=== PATIENT | female | born 1950 | race Caucasian/White ===

== ENCOUNTER 2017-02-27 08:51 | Emergency (ER) | payer MEDICAID, MEDICARE ==
[2017-02-27] MEDS ORDERED: DEXAMETHASONE 10 MG/ML VIAL PO STA (10:20)
[2017-02-27] MEDS ORDERED: CHERRY SYRUP 10 ML UDC PO ONE (10:27)
[2017-02-27] MEDS ORDERED: DEXAMETHASONE 10 MG/ML VIAL ONE (10:27)
== END 2017-02-27 12:44 | disposition home or self-care (01) ==
DX: S40.012A Contusion of left shoulder, initial encounter (principal); S20.222A Contusion of left back wall of thorax, initial encounter; W18.2XXA Fall in (into) shower or empty bathtub, initial encounter; Y93.E1 Activity, personal bathing and showering; Y92.002 Bathroom of unspecified non-institutional (private) residence as the place of occurrence of the external cause; I10 Essential (primary) hypertension; E03.9 Hypothyroidism, unspecified
CPT/HCPCS: 72072; 73030; 99283; 99284; A9270

== ENCOUNTER 2017-04-13 10:11 | Emergency (ER) | payer MEDICARE, MEDICAID ==
--- NOTE | 2017-04-13 10:45 | ED Physician Documentation ---
PD HPI NECK PAIN - Stated complaint Stated Complaint: NECK PX - Chief complaint Chief Complaint: General - History obtained from History obtained from: Patient - History of Present Illness Timing - onset: How many days ago (2) Timing - duration: Days (2) Timing - details: Gradual onset, Still present, Waxing and waning Location: Lower, Right Associated symptoms: No: Fever, Weakness, Numbness Improves with: Rest Worsened by: Movement, Twisting, Palpation Contributing factors: Lifting (is moving and has been loading and lifting boxes. ) Similar symptoms before: Has not had sx before Recently seen: Not recently seen Review of Systems Constitutional: denies: Fever, Chills Nose: denies: Rhinorrhea / runny nose, Congestion Throat: denies: Sore throat Cardiac: denies: Chest pain / pressure Respiratory: denies: Dyspnea, Cough GI: denies: Nausea, Vomiting, Diarrhea : denies: Dysuria, Frequency Skin: denies: Rash, Lesions Musculoskeletal: reports: Neck pain Neurologic: denies: Focal weakness, Numbness Endocrine: denies: Easy bruising / bleeding Immunocompromised: denies: Immunocompromised PD PAST MEDICAL HISTORY - Past Medical History Past Medical History: Yes Cardiovascular: Hypertension, High cholesterol Respiratory: None Neuro: None Endocrine/Autoimmune: HyPOthyroidism GI: None : None HEENT: None Psych: Depression Musculoskeletal: Osteoarthritis Derm: None - Past Surgical History Past Surgical History: Yes General: 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, 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 - Present Medications Home Medications: Ambulatory Orders Medication Instructions Recorded Confirmed Lisinopril 20 mg PO DAILY 09/21/14 04/13/17 Amlodipine Besylate [Norvasc] 10 mg PO DAILY 03/14/15 04/13/17 Atorvastatin [Lipitor] 40 mg PO QPM 03/14/15 04/13/17 Levothyroxine [Synthroid] 112 mcg PO QDAC 03/14/15 04/13/17 Alendronate [Fosamax] 70 mg ORAL TITR 02/27/17 04/13/17 QUEtiapine [SEROquel] 100 mg ORAL BID 02/27/17 04/13/17 buPROPion [Wellbutrin Sr] 100 mg ORAL BID 02/27/17 04/13/17 Cholestyramine [Questran] 0 mg DAILY 04/13/17 04/13/17 Diazepam 5 mg PO TID PRN #20 tablet 04/13/17 Hydrocodone/Acetaminophen [[place] 1 each PO Q6H PRN #20 tablet 04/13/17 5-325 Tablet] - Allergies Allergies/Adverse Reactions: Allergies Allergy/AdvReac Type Severity Reaction Status Date / Time aspirin Allergy Severe Anaphylaxis Verified 04/13/17 10:25 NSAIDS (Non-Steroidal Allergy Severe Anaphylaxis Verified 04/13/17 10:25 Anti-Inflamma egg Allergy Unknown Unknown Verified 04/13/17 10:25 Egg Derived Allergy Unknown Unknown Verified 04/13/17 10:25 Sulfa (Sulfonamide Allergy Rash Verified 04/13/17 10:25 Antibiotics) tetracycline [Tetracycline] AdvReac Intermediate Rash Verified 04/13/17 10:25 - Social History Does the pt smoke?: No Smoking Status: Never smoker Does the pt drink ETOH?: Yes Does the pt have substance abuse?: No - Immunizations Immunizations are current?: Yes - POLST Patient has POLST: No PD ED PE NORMAL - Vitals Vital signs reviewed: Yes - General General: Alert and oriented X 3, Well developed/nourished - HEENT HEENT: Atraumatic - Neck Neck: Supple, no meningeal sign, No bony TTP, Other (tender right lateral trapezius muscle in suprascapular area. No rash nor redness. 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 Will treat as muscular strain and given trigger point injection right suprascapular area of trapezius muscle with Kenalog 40 mg and 1 ml Marcaine. PO meds given as well ), d/w patient Departure - Departure Disposition: 01 Home, Self Care Clinical Impression: Trapezius muscle strain Qualifiers: Encounter type: initial encounter Laterality: right Qualified Code(s): S46.811A - Strain of other muscles, fascia and tendons at shoulder and upper arm level, right arm, initial encounter Condition: Stable Record reviewed to determine appropriate education?: Yes Instructions: ED Sprain Strain Neck Follow-Up: Lyndsay Rey ARNP [Primary Care Provider] - Prescriptions: Diazepam 5 mg PO TID PRN #20 tablet PRN Reason: Spasms Hydrocodone/Acetaminophen [[place] 5-325 Tablet] 1 each PO Q6H PRN #20 tablet PRN Reason: Pain Comments: Heat and gentle stretching for the area often. Massage and chiropractic treatments are good as well. Tylenol or hydrocodone as needed for pains. Diazepam as needed for spasms. Recheck if not improved over the next several days. Discharge Date/Time: 04/13/17 11:37
[2017-04-13] MEDS ORDERED: HYDROcod/ACETAM 5/325 MG TABLET PO STA (10:57)
[2017-04-13] MEDS ORDERED: diazePAM 5 MG TABLET PO STA (10:57)
[2017-04-13] MEDS ORDERED: TRIAMCINOLONE 40 MG/ML VIAL IM STA (10:57)
[2017-04-13] MEDS ORDERED: diazePAM 5 MG TABLET PO ONE (11:00)
[2017-04-13] MEDS ORDERED: TRIAMCINOLONE 40 MG/ML VIAL ONE (11:00)
[2017-04-13] MEDS ORDERED: HYDROcod/ACETAM 5/325 MG TABLET ONE (11:00)
[2017-04-13 11:38] VITALS: BP 149/88
== END 2017-04-13 11:37 | disposition home or self-care (01) ==
LOC: ED 10:11
DX: S46.811A Strain of other muscles, fascia and tendons at shoulder and upper arm level, right arm, initial encounter (principal); X50.0XXA Overexertion from strenuous movement or load, initial encounter; X50.3XXA Overexertion from repetitive movements, initial encounter
CPT/HCPCS: 20552; 99283; A9270

== ENCOUNTER 2017-04-22 11:21 | Emergency (ER) | payer MEDICARE, MEDICAID ==
[2017-04-22] MEDS ORDERED: SODIUM CHLORIDE 0.9% 1,000 ML IV ONE ×2 (12:14→13:06)
[2017-04-22] MEDS ORDERED: PANTOPRAZOLE 40 MG VIAL IVP STA (12:14)
--- NOTE | 2017-04-22 12:16 | ED Physician Documentation ---
PD HPI GI BLEED - Stated complaint Stated Complaint: ABD PX/RECTAL BLEED - Chief complaint Chief Complaint: Abd Pain - History obtained from History obtained from: Patient - History of Present Illness Timing - onset: How many days ago (3) Timing - duration: Days (3) Timing - details: Gradual onset, Still present Associated symptoms: Black/tarry stool Contributing factors: No: NSAID use Improved by: Laying still Similar symptoms before: Has not had sx before Recently seen: Not recently seen - Additional information Additional information: 66 y/o female reports 3 days of dark stool per rectum that is now improving. She did take some medication for diarrhea. Review of Systems Constitutional: denies: Fever Eyes: denies: Decreased vision Ears: denies: Loss of hearing Nose: denies: Congestion Throat: denies: Sore throat Cardiac: denies: Chest pain / pressure, Palpitations Respiratory: denies: Dyspnea, Cough GI: reports: Abdominal Pain, Nausea, Diarrhea, Bloody / black stool. 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 - Present Medications Home Medications: Ambulatory Orders Medication Instructions Recorded Confirmed Lisinopril 20 mg PO DAILY 09/21/14 04/13/17 Amlodipine Besylate [Norvasc] 10 mg PO DAILY 03/14/15 04/13/17 Atorvastatin [Lipitor] 40 mg PO QPM 03/14/15 04/13/17 Levothyroxine [Synthroid] 112 mcg PO QDAC 03/14/15 04/13/17 Alendronate [Fosamax] 70 mg ORAL TITR 02/27/17 04/13/17 QUEtiapine [SEROquel] 100 mg ORAL BID 02/27/17 04/13/17 buPROPion [Wellbutrin Sr] 100 mg ORAL BID 02/27/17 04/13/17 Cholestyramine [Questran] 0 mg DAILY 04/13/17 04/13/17 Diazepam 5 mg PO TID PRN #20 tablet 04/13/17 Hydrocodone/Acetaminophen [[place] 1 each PO Q6H PRN #20 tablet 04/13/17 5-325 Tablet] Pantoprazole [Protonix] 40 mg PO DAILY #20 tablet 04/22/17 - Allergies Allergies/Adverse Reactions: Allergies Allergy/AdvReac Type Severity Reaction Status Date / Time aspirin Allergy Severe Anaphylaxis Verified 04/22/17 11:28 NSAIDS (Non-Steroidal Allergy Severe Anaphylaxis Verified 04/22/17 11:28 Anti-Inflamma egg Allergy Unknown Unknown Verified 04/22/17 11:28 Egg Derived Allergy Unknown Unknown Verified 04/22/17 11:28 Sulfa (Sulfonamide Allergy Rash Verified 04/22/17 11:28 Antibiotics) tetracycline [Tetracycline] AdvReac Intermediate Rash Verified 04/22/17 11:28 - Social History Does the pt smoke?: No Smoking Status: Never smoker Does the pt drink ETOH?: Yes Does the pt have substance abuse?: No - Immunizations Immunizations are current?: Yes - POLST Patient has POLST: No PD ED PE NORMAL - Vitals Vital signs reviewed: Yes (hypertensive) - General General: Alert and oriented X 3, Well developed/nourished, Other (The patient does appear to be 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 ) - HEENT HEENT: Atraumatic, PERRL - Neck Neck: Supple, no meningeal sign - Cardiac Cardiac: RRR, No murmur - Respiratory Respiratory: No respiratory distress, Clear bilaterally - Abdomen Abdomen: Soft, Other (tenderness to the right side of the abdomen suprapubic to the liver. ) - Rectal Rectal: Other (normal rectal tone with the vault empty ) - Back Back: No CVA TTP, No spinal TTP - Derm Derm: Normal color, Warm and dry, No rash - Extremities Extremities: No deformity, No edema - Neuro Neuro: Alert and oriented X 3, No motor deficit, No sensory deficit, Normal speech - Psych Psych: Normal mood Results - Vitals Vitals: Vital Signs - 24 hr 04/22/17 04/22/17 04/22/17 11:25 13:18 14:13 Temperature 36.6 C 36.7 C Heart Rate 83 66 75 Respiratory 16 14 14 Rate Blood Pressure 136/91 H 134/70 H 149/76 H O2 Saturation 100 96 98 Oxygen O2 Source [With Activity] Nasal cannula O2 Source Room air - Labs Labs: Laboratory Tests 04/22/17 04/22/17 04/22/17 12:50 12:50 12:50 WBC 11.8 H RBC 4.16 L Hgb 12.7 Hct 37.9 MCV 91.1 MCH 30.6 MCHC 33.6 RDW 14.4 Plt Count 242 MPV 8.5 Neut # 7.8 H Lymph # 3.0 [place] # 0.9 Eos # 0.2 Baso # 0.0 Absolute Nucleated RBC 0.00 Nucleated RBCs 0.0 PT 11.1 INR 1.0 APTT 25.3 Sodium 139 Potassium 4.1 Chloride 107 Carbon Dioxide 21 Anion Gap 11.0 BUN 33 H Creatinine 1.3 H Estimated GFR (MDRD) 41 L Glucose 90 Calcium 9.8 Total Bilirubin 0.7 AST 20 ALT 18 Alkaline Phosphatase 61 Troponin I Total Protein 7.6 Albumin 4.4 Globulin 3.2 Albumin/Globulin Ratio 1.4 Lipase 19 L Urine Color Urine Clarity Urine pH Ur Specific [place] Urine Protein Urine Glucose (UA) Urine Ketones Urine Occult Blood Urine Nitrite Urine Bilirubin Urine Urobilinogen Ur Leukocyte Esterase Urine RBC Urine WBC Ur Squamous Epith Cells Urine Bacteria Ur Microscopic Review Urine Culture Comments Blood Type Antibody Screen 04/22/17 04/22/17 04/22/17 12:50 12:50 14:20 WBC RBC Hgb Hct MCV MCH MCHC RDW Plt Count MPV Neut # Lymph # [place] # Eos # Baso # Absolute Nucleated RBC Nucleated RBCs PT INR APTT Sodium Potassium Chloride Carbon Dioxide Anion Gap BUN Creatinine Estimated GFR (MDRD) Glucose Calcium Total Bilirubin AST ALT Alkaline Phosphatase Troponin I < 0.04 Total Protein Albumin Globulin Albumin/Globulin Ratio Lipase Urine Color YELLOW Urine Clarity CLEAR Urine pH 5.0 Ur Specific [place] 1.015 Urine Protein NEGATIVE Urine Glucose (UA) NEGATIVE Urine Ketones NEGATIVE Urine Occult Blood NEGATIVE Urine Nitrite NEGATIVE Urine Bilirubin NEGATIVE Urine Urobilinogen 0.2 (NORMAL) Ur Leukocyte Esterase SMALL H Urine RBC 0-5 Urine WBC 4-5 Ur Squamous Epith Cells FEW Squamous Urine Bacteria Few Ur Microscopic Review INDICATED Urine Culture Comments INDICATED Blood Type A POSITIVE Antibody Screen NEGATIVE PD MEDICAL DECISION MAKING - ED course Complexity details: reviewed old records, reviewed results, re-evaluated patient , considered differential, d/w patient ED course: 66 y/o female with blood per rectum with black stool for 3 days has normal Hct on exam and she has an empty vault this afternoon. An IV is begun and she is given one liter of saline and 40mg of protonix IV. She continues to have pain and this is planned to be investigated with the use of a CT of the abdomen and pelvis and the patient declines. She has no further output in the ED. Departure - Departure Disposition: 01 Home, Self Care Clinical Impression: GI bleeding Qualifiers: GI bleed type/associated pathology: unspecified gastrointestinal hemorrhage type Qualified Code(s): K92.2 - Gastrointestinal hemorrhage, unspecified Condition: Stable Instructions: ED Bleed UGI Stable Follow-Up: Lyndsay Rey ARNP [Primary Care Provider] - Max Jarvis MD [Provider Admit Priv/Credential] - Prescriptions: Pantoprazole [Protonix] 40 mg PO DAILY #20 tablet Discharge Date/Time: 04/22/17 16:29
[2017-04-22 12:59] LABS: BASOPHILS % (AUTO) 0.4 %; EOSINOPHILS # (AUTO) 0.2 10^3/uL (0.0-0.7); EOSINOPHILS % (AUTO) 1.5 %; HCT - HEMATOCRIT 37.9 % (37.0-47.0); HGB - HEMOGLOBIN 12.7 g/dL (12.0-16.0); MEAN CORPUSCULAR HEMOGLOBIN 30.6 pg (27.0-31.0); MEAN CORPUSCULAR HGB CONC 33.6 g/dL (32.0-36.0); MEAN CORPUSCULAR VOLUME 91.1 fL (81.0-99.0); MEAN PLATELET VOLUME 8.5 fL (7.9-10.8); MONOCYTES # (AUTO) 0.9 10^3/uL (0.0-1.0); MONOCYTES % (AUTO) 7.3 %; NEUTROPHILS # (AUTO) 7.8 10^3/uL (1.5-6.6); NEUTROPHILS % (AUTO) 65.8 %; RED BLOOD COUNT 4.16 10^6/uL (4.20-5.40); RED CELL DISTRIBUTION WIDTH 14.4 % (12.0-15.0); UNCORRECTED WHITE BLOOD COUNT 11.8 x10^3/uL; WHITE BLOOD COUNT 11.8 x10^3/uL (4.8-10.8)
[2017-04-22 13:05] LABS: PT - PROTHROMBIN TIME 11.1 secs (9.9-12.6)
[2017-04-22] MEDS ORDERED: PANTOPRAZOLE 40 MG VIAL ONE (13:06)
[2017-04-22 13:10] LABS: ALBUMIN/GLOBULIN RATIO 1.4 (1.0-2.2); BILIRUBIN,TOTAL 0.7 mg/dL (0.2-1.0); CALCIUM 9.8 mg/dL (8.5-10.3); CREATININE 1.3 mg/dL (0.4-1.0); POTASSIUM 4.1 mmol/L (3.5-5.0); TOTAL PROTEIN 7.6 g/dL (6.7-8.2)
[2017-04-22 13:13] LABS: PARTIAL THROMBOPLASTIN TIME 25.3 secs (24.9-33.3)
[2017-04-22 14:15] VITALS: BP 149/76
[2017-04-22 14:29] LABS: BILIRUBIN,URINE NEGATIVE (NEGATIVE); UA w/ MICROSCOPIC CHARGE YES
[2017-04-22 14:41] LABS: UR CULTURE IF IND INDICATED
== END 2017-04-22 16:29 | disposition home or self-care (01) ==
LOC: ED 11:21
DX: K92.1 Melena (principal); E78.00 Pure hypercholesterolemia, unspecified; I10 Essential (primary) hypertension; E03.9 Hypothyroidism, unspecified; M19.90 Unspecified osteoarthritis, unspecified site
CPT/HCPCS: 36415; 80053; 81001; 81003; 83690; 84484; 85025; 85610; 85730; 86850; 86900; 86901; 87086; 96374; 99283; 99284